=== PATIENT | male | born 1935 | race Caucasian/White ===

== ENCOUNTER → 2020-02-25 13:24 | Outpatient (BNVA) | payer MEDICARE, SELFPAY | PROVIDERS: Visit Provider Urology | DX: N43.3 Hydrocele, unspecified (principal); N40.1 Benign prostatic hyperplasia with lower urinary tract symptoms; N13.8 Other obstructive and reflux uropathy; R39.12 Poor urinary stream; R35.1 Nocturia | CPT/HCPCS: 99214 ==

== ENCOUNTER 2020-03-09 06:37 | Day surgery (SDC) | payer MEDICARE, SELFPAY ==
[2020-03-09] VITALS (10 sets, daily range): BP systolic 133–154; BP diastolic 67–81; PULSE 57–64; RESP 12–20; TEMP 36.3–36.6; O2SAT 94–98; BMI 24.4
--- NOTE | 2020-03-09 07:25 | P.CONAN_ITS ---
HPI - Anesthesia Eval Consult details Narrative: Here for left radical orchiectomy [facility] Past Medical History Medical History (Updated 03/09/20 @ 09:26 by Kisha David) Abdominal aortic aneurysm Aortic stenosis BPH (benign prostatic hyperplasia) Deviated nasal septum Follicular non-Hodgkin's lymphoma Hydrocele Hypercholesteremia Peripheral vascular disease of lower extremity Shingles Surgical History Surgical History (Updated 03/09/20 @ 09:26 by Kisha David) H/O aortic valve replacement Social History Social History Smoking Status: Never smoker Use of substances other than those prescribed or required for medical reasons: No Advance Directives: No Advance Directives Information Provided: Yes Recently lost weight without trying: No Meds Allergies Allergy/AdvReac Type Severity Reaction Status Date / Time No Known Allergies Allergy Verified 03/06/20 11:19 Home Medications Medication Instructions Recorded Confirmed Type atorvastatin 20 mg tablet 20 mg PO BEDTIME 02/25/20 History tamsulosin 0.4 mg capsule 0.4 mg PO BEDTIME 02/25/20 History Exam Exam Date and Time: March 09, 2020 0725 Height,Weight and Vital Signs: Height 6 ft Weight 81.647 kg Last Vital Signs Temp 97.3 F 03/09/20 07:11 Pulse 63 03/09/20 07:11 Resp 18 03/09/20 07:11 BP 145/70 H 03/09/20 07:11 Pulse Ox 97 03/09/20 07:11 Pertinent Lab Results Pertinent Lab Results: Echo 02/27/18: EF 60-65%. Mild LVH. Normal RV size and function. Normally functioning bioprosthetic AV with no stenosis or regurgitation. No evidence of pulmonary hypertension. 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 Cardiac cath pre-op 07/18/2012: No significant CAD. Severe aortic stenosis with STEVE 0.9cm2 and mean gradient 49mmHg. Holter monitor 06/29/16: Baseline SR with occ. PVCs, 3 runs of SVT- longest 8 beats. Carotid USS 09/13/17: No hemodynamically significant stenosis. Mild hard plaque bilaterally. Airway Mallampati Class: II TM Dist: >3cm Neck ROM: Full Loose/Missing/Broken Teeth: No Heart: RRR with systolic murmur Lungs: CTAB Assessment and Plan Assessment Anesthesia Assessment: Anesthesia Plan Discussed and Chart Reviewed (Cardiology records obtained) Final Anesthetic Review NPO: Yes ASA Class: III Final Preanesthetic Review: No Changes in Pt Med Stat (Patient is s/p aortic valve replacement 7 years ago. Sees emergency services director every 6 months. Last seen about 6 months ago. No documentation in chart but patient reports no cardiac symptoms. States was told everything ok by emergency services director at last visit.), Meds/Allgs Chart Reviewed, Consent Obtained/Reviewed (Discussed anesthesia, procedure with patient with risks and benefits. In light of patient's lack of symptoms, stable vital signs, low surgical risk, will proceed with surgery. Patient understands and agrees.) and Anes Risks/Benef Reviewed Patient Risk: Intermediate Procedure Risk: Low Anesthetic Plan Anesthetic Plan: GA Disposition: Standard PACU
--- NOTE | 2020-03-09 07:29 | MHC.SHP ---
Pre-Procedural Eval Section A The patient is an INPATIENT: Yes Changes since office visit: No Cold of Flu in the past 2 weeks, No New Medical Problems, No Changes in Medication and No Patient answered all questions The History & Physical has been completed within 30 days and I have reviewed it.: Yes Section B Chief Complaint: testicular mass left Allergies: Allergies Allergy/AdvReac Type Severity Reaction Status Date / Time No Known Allergies Allergy Verified 03/06/20 11:19 Plan Patient has been examined and remains a candidate for the planned procedure
[2020-03-09] MEDS: ceFAZolin Sodium/Dextrose,Iso 2 GM/50 ML PIGGYBACK IV (07:48)
--- NOTE | 2020-03-09 07:49 | PC.NURSE ---
PATIENT HAD AN AORTIC VALVE REPLACEMENT SEVEN YEARS AGO AT [facility] [place], ALSO STATES HE SEES [facility] YEARLY. ANESTHESIA AWARE. OK TO PROCEED. SPEAKS [place] AND UPPER [place]ORBI[place]
--- NOTE | 2020-03-09 08:47 | PM.OP ---
Brief Operative Note Date of procedure: 03/09/20 Pre-op diagnosis: left testicular mass Post-op diagnosis: same Procedure: Left radical orchiectomy Implants: none Surgeon: Shad Wray MD Anesthesia: GLMA Estimated blood loss (mL): 5 Pathology: other ( left testicle) Condition: stable Disposition: same day
--- NOTE | 2020-03-09 09:00 | P.OP_ITS ---
Operative Note Operative Note Narrative: PreOperative Diagnosis: Left testicular mass Post Operative Diagnosis: left testicular mass Procedure: - left radical orchiectomy Surgeon: Dr Shad Wray Anesthesia: General Indications for procedure: left testicular mass. Procedure: After informed consent was verified patient was brought to the operating placed in supine position. Anesthesia was administered per protocol. Patient was placed in Supine position and prepped and draped in a sterile fashion. Safety pause time-out and side of surgery confirmed. Antibiotics confirmed. The inguinal ring was identified on palpation. A 2-1/2 inch incision was marked above the inguinal ring. The planned incision was infiltrated with 1% lidocaine. Using a 15 blade the incision was taken through the skin into the subcutaneous tissue. Subcutaneous tissue was dissected using Bovie cautery. The cord struct ures were identified. Using 15 blade a small incision was made in the overlying fascia. For this incision was developed down to the cord with scissors releasing the cord. The cord was elevated and using a Lay clamp a Kassi drain was double wrapped around the cord and secured in order to prevent any retrograde contamination. The overlying containing structures were divided. The testicle was delivered onto the field. The gubernaculum was divided with Bovie cautery and 1 area with a small vein was sutured using 3-0 silk. The testicle was elevated. Cord was followed proximally. The vas deferens was isolated from the vascular packet. Lay clamps were placed. The cord was divided and handed off the field. The vas deferens was tied with a 0 silk tie. Using a 0 silk stick tie the v ascular packet was controlled. These remnant structures were then placed back behind the fascial plane. The overlying anterior fascia was then closed using a 3-0 Vicryl suture. The incision and testicular sac were washed with normal saline copiously. After this was dried the deep structures were reapproximated using a 3-0 Vicryl suture. The skin was then closed with a running 4-0 Monocryl subcutaneous suture. Final dressing was placed He tolerated procedure well was extubated in operating room transferred in stable condition to the recovery area Pathology specimen left testicle Drains none This is the end of the operative dictation
--- NOTE | 2020-03-09 09:30 | HO.POSTANES ---
Post Anesthesia Evaluation Post Anesthesia Evaluation Vital Signs: Vital Signs Temp Pulse Resp BP Pulse Ox 03/09/20 09:25 60 14 142/69 H 94 03/09/20 09:10 62 16 137/67 95 03/09/20 09:05 63 16 134/71 96 03/09/20 09:00 64 14 143/81 H 98 03/09/20 08:55 97.8 F 61 12 154/71 H 96 03/09/20 07:11 97.3 F 63 18 145/70 H 97 Anesthesia: General Mental Status: Awake Pain Control: Satisfactory Nausea/Vomiting: None Hydration: Adequate Anesthesia-Related Issues: No Anes. Related Issues
[2020-03-09] MEDS: Acetaminophen 325 MG TABLET 650 MG PO (09:53)
[2020-03-09] MEDS: traMADoL HCL 50 MG TABLET PO (09:54)
== END 2020-03-09 11:15 | disposition home or self-care (01) ==
PROVIDERS: PCP Internal Medicine; Visit Provider Urology
PROC: (CPT 54530; principal; 2020-03-09 07:30)
DX: C62.92 Malignant neoplasm of left testis, unspecified whether descended or undescended (principal); C82.90 Follicular lymphoma, unspecified, unspecified site; N43.3 Hydrocele, unspecified; N40.1 Benign prostatic hyperplasia with lower urinary tract symptoms; N13.8 Other obstructive and reflux uropathy; I73.9 Peripheral vascular disease, unspecified; Z79.899 Other long term (current) drug therapy
CPT/HCPCS: 54530; 88309; 88313; 88341; 88342; J0690; J2370; J2405; J3010

== ENCOUNTER → 2020-03-17 13:53 | Outpatient (BNVA) | payer MEDICARE, SELFPAY | PROVIDERS: PCP Internal Medicine; Visit Provider Urology | DX: C62.90 Malignant neoplasm of unspecified testis, unspecified whether descended or undescended (principal); N40.0 Benign prostatic hyperplasia without lower urinary tract symptoms; N43.3 Hydrocele, unspecified; Z12.5 Encounter for screening for malignant neoplasm of prostate; Z79.899 Other long term (current) drug therapy | CPT/HCPCS: 51798; 99212 ==

== ENCOUNTER → 2020-06-18 13:12 | Outpatient (BNVA) | payer MEDICARE, SELFPAY | PROVIDERS: PCP Internal Medicine; Visit Provider Urology | DX: N40.1 Benign prostatic hyperplasia with lower urinary tract symptoms (principal); N13.8 Other obstructive and reflux uropathy; C62.90 Malignant neoplasm of unspecified testis, unspecified whether descended or undescended | CPT/HCPCS: 51798; 81002; 99212 ==